=== PATIENT | female | born 1975 | race Caucasian/White ===

== ENCOUNTER 2021-10-16 07:58 | Day surgery (SDC) | payer OTHER ==
[~2021-10-16] VITALS: Ht 157.5 cm; Wt 122.5 kg
[2021-10-16] MEDS ORDERED: diphenhydrAMINE 50 MG/ML VIAL ONE (11:15)
[2021-10-16] MEDS ORDERED: fentaNYL citrate 0.05 MG/ML VIAL ONE (11:16)
[2021-10-16] MEDS ORDERED: MIDAZOLAM 2 MG/2 ML VIAL ONE (11:16)
[2021-10-16] MEDS ORDERED: fentaNYL citrate 0.05 MG/ML VIAL IVP ONE (13:35)
[2021-10-16] MEDS ORDERED: MIDAZOLAM 2 MG/2 ML VIAL IVP ONE (13:35)
== END 2021-10-16 12:18 | disposition home or self-care (01) ==
LOC: MDS 07:58 → MMU 07:58 → MDS 12:18
PROVIDERS: ATTEND Internal Medicine Gastroenterology
DX: Z12.11 Encounter for screening for malignant neoplasm of colon (principal); K30 Functional dyspepsia; K21.9 Gastro-esophageal reflux disease without esophagitis; E11.9 Type 2 diabetes mellitus without complications; I10 Essential (primary) hypertension; E66.9 Obesity, unspecified; Z79.84 Long term (current) use of oral hypoglycemic drugs; Z79.899 Other long term (current) drug therapy; Z98.890 Other specified postprocedural states; Z68.42 Body mass index [BMI] 45.0-49.9, adult; Z20.822 Contact with and (suspected) exposure to COVID-19
CPT/HCPCS: 43235; 45378; 81025; 87426; J1200; J2250; J3010